=== PATIENT | male | born 1950 | race Caucasian/White ===

== ENCOUNTER 2019-03-10 11:02 | Inpatient (IN) | payer OTHER, MEDICAID ==
[~2019-03-10] VITALS: Ht 170.2 cm; Wt 84.4 kg
[2019-03-10 11:14] VITALS: Ht 170.2 cm; Wt 84.4 kg
--- NOTE | 2019-03-10 11:52 | NUR ---
PT AWAKE AND ALERT. PT C/O RT 2ND TOE PAIN X2 DAYS AND BILATERAL EYE DISCHARGE X2 DAYS. NAD. RESP E/U. MSE COMPLETED BY DR ZUNIGA
--- NOTE | 2019-03-10 12:50 | NUR ---
PT MEDICATED PER DOCTORS ORDERS
[2019-03-10 12:55] LABS: BASOPHIL % 0.4 % (0-2); PLATELET COUNT 240 x10^3mcL (130-400); RED CELL DISTRIBUTION WIDTH 13.7 % (11.5-14.5)
--- NOTE | 2019-03-10 13:05 | NUR ---
PT TAKEN TO XRAY VIA [facility]
--- NOTE | 2019-03-10 14:00 | NUR ---
PT BACK FROM XRAY AND PLACED BACK ON CM. PT PROVIDED URINE SAMPLE AND SENT TO LAB. NAD. RESP E/U.
[2019-03-10 14:10] LABS: ALKALINE PHOSPHATASE 63 U/L (46-116); ALT/SGPT 23 U/L (16-63); AST/SGOT 8 U/L (15-37); BILIRUBIN TOTAL 0.3 mg/dL (0.20-1.00); CALCIUM 8.7 mg/dL (8.5-10.1); CARBON DIOXIDE 27.4 mmol/L (21-32); CHLORIDE SERUM 103 mmol/L (98-107); CHOLESTEROL 135 mg/dL (<200); CREATININE SERUM 1.1 mg/dL (0.7-1.3); GFR1 > 60 mL/min; GLUCOSE SERUM 265 mg/dL (74-106); HDL CHOLESTEROL 40 mg/dL (40-60); LIPASE 250 IU/L (73-393); POTASSIUM SERUM 5.1 mmol/L (3.5-5.1); SODIUM SERUM 139 mmol/L (136-145); TOTAL PROTEIN, SERUM 6.4 g/dL (6.4-8.2)
[2019-03-10 14:11] LABS: ALBUMIN 3.2 g/dL (3.4-5.0)
[2019-03-10 14:25] LABS: microscopic required? YES; urine erythrocyte NEGATIVE (NEGATIVE)
[2019-03-10] MEDS ORDERED: BENAZEPRIL HYDR20 M1 PO (14:43)
[2019-03-10] MEDS ORDERED: METFORMIN HCL500 MG PO (14:44)
[2019-03-10] MEDS ORDERED: NOR5 PO (14:44)
[2019-03-10] MEDS ORDERED: TRAMADOL HCL50 MG PO (14:44)
[2019-03-10] MEDS ORDERED: BAYER ASPIRIN R81 MG PO (14:45)
[2019-03-10] MEDS ORDERED: FUROSEMIDE20 MG PO (14:45)
--- NOTE | 2019-03-10 15:28 | NUR ---
REPORT CALLED TO [facility], WAITING TO FIND FROM ADMITTING IF PT CAN BE ADMITTED.
--- NOTE | 2019-03-10 15:43 | NUR ---
PT PROVIDED SUGAR FREE SODA AND SUGAR FREE PUDDING
--- NOTE | 2019-03-10 15:43 | NUR ---
PORTABLE ULTRASOUND AT BEDSIDE
[2019-03-10 16:06] LABS: CHOLESTEROL/HDL RATIO 3.4; MAGNESIUM 1.8 mg/dL (1.8-2.4)
--- NOTE | 2019-03-10 16:45 | NUR ---
[facility] ACCOM[facility]ANIED BY TRANSPORTER. PT A/A/O X 4, CALM, COOPERATIVE; LUXEMBOURGISH-SPEAKING ONLY. POOR VISION, REDNESS, AND CLEAR DISCHARGE TO OU; SQUAXIN BILATERAL EARS; BP ELEVATED AT 159/75 (89); DENIES H/A OR NAUSEA. AMBULATORY, NO GAIT OR BALANCE IMPAIRMENT NOTED PT WALKED FROM GUERNEY TO BED; NOTED RIGHT BIG TOE AMPUTATION FROM 6 YEARS AGO. HR 56, S1S2, DENIES CHEST PAIN OR DISCOMFORT AT THIS TIME. CL RADIAL AND PEDAL PULSES PRESENT, RIGHT 2ND TOE LACERATION W/ ECCHYMOSIS TO TIP OF TOE AND +2 NON-PITTING EDEMA, ABRIL; CAP REFILL < 3 SECS, DENIES PAIN OR DISCOMFORT AT THIS TIME; SCD BY BEDSIDE. 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 NO ACUTE RESPIRATORY DISTRESS NOTED. FULL DENTURES BOTH UPPER AND LOWER. OLIGURIC, DENIES DYSURIA. IV SITE LAC 18G, CDI. ORIENTED PT TO ROOM, BED CONTROLS, CALL LIGHT SYSTEM. SIDE RAILS UP X 2, BED IN LOW POSITION. WILL ENDORSE TO JOVANNA GRIDER.
[2019-03-10 17:22] VITALS: BP 159/75
--- NOTE | 2019-03-10 17:45 | NUR ---
PT RESTING IN BED COMFORTABLY. DENIES ANY PAIN. STABLE. INFORMED ABOUT PT INFORMED HE IS OLIGURIC.
--- NOTE | 2019-03-10 19:00 | NUR ---
RECEIVED PT FROM DAY SHIFT RN. PT IS IS A&O X 4 AND CURRENTLY RESTING IN BED. PT IS SYRIAC SPEAKING AND ABLE TO FOLLOW SIMPLE COMMANDS. PT DENIES ANY CHEST PAIN OR SHORTNESS OF BREATH AT THIS TIME ON ROOM AIR. LUNGS SOUNDS ARE CTA. NO USE OF ACCESSORY MUSCLES OR LABORED BREATHING. RIGHT SECOND TOE SWELLING NOTED TO THE LOWER EXTREMITY. PT DENIES PAIN AT THIS TIME. PT STATED THAT HE IS VOIDING NOW AND HAS HAD REGULAR OUTPUT SINCE ADMISSION. WILL PERFORM BLADDER SCAN PER ORDER. LAC IV CLEAN DRY AND INTACT AT THIS TIME AND RUNNING NS AT 100ML/HR. SAFETY MEASURES ARE IN PLACE. CALL LIGHT IS WITHIN REACH. WILL CONTINUE TO MONITOR.
--- NOTE | 2019-03-10 19:05 | NUR ---
PT RESTING IN BED COMFORTABLY. DENIES PAIN. STABLE. GAVE REPORT TO EPIDEMIOLOGY INTERNSHIP NURSE.
[2019-03-10 20:44] VITALS: BP 136/70
--- NOTE | 2019-03-10 21:24 | NUR ---
PT VOIDED 900 ML IN URINAL
--- NOTE | 2019-03-11 04:31 | NUR ---
PT CURRENTLY RESTING IN BED. NO DISTRESS NOTED. NO USE OF ACCESSORY MUSCLES OR LABORED BREATHING NOTED. WILL CONTINUE TO MONITOR.
[2019-03-11 05:08] VITALS: BP 138/65
[2019-03-11 06:24] LABS: BASOPHIL % 0.3 % (0-2); PLATELET COUNT 222 x10^3mcL (130-400); RED CELL DISTRIBUTION WIDTH 13.7 % (11.5-14.5)
[2019-03-11 06:46] LABS: CALCIUM 8.7 mg/dL (8.5-10.1); CARBON DIOXIDE 27.3 mmol/L (21-32); CHLORIDE SERUM 106 mmol/L (98-107); CREATININE SERUM 1.1 mg/dL (0.7-1.3); GFR1 > 60 mL/min; GLUCOSE SERUM 161 mg/dL (74-106); MAGNESIUM 1.6 mg/dL (1.8-2.4); PHOSPHOROUS 3.3 mg/dL (2.5-4.9); SODIUM SERUM 140 mmol/L (136-145)
--- NOTE | 2019-03-11 07:16 | NUR ---
ENDORSED TO JAVI DAY SHIFT RN. TO COMPLETE CHECKLIST. PT RESTING IN CHAIR. NO DISTRESS NOTED.
--- NOTE | 2019-03-11 07:26 | NUR ---
REPORT RECEIVED FROM JOVANNA SANDOVAL. PATIENT UP IN A CHAIR AND NOT IN ANY DISTRESS. NS AT 100CC/HR TO RAC INFUSING. INSTRUCTED TO CALL RN FOR ANY NEED.
[2019-03-11 09:30] VITALS: BP 134/80
--- NOTE | 2019-03-11 11:28 | NUR ---
SEEN AND EXAMINED BY DR. MENARD. RIGHT SECOND TOE WAS DRESSED BY MD MENARD. PATIENT NOT IN ANY DISTRESS. STATES HE IS HUNGRY. BS 134. WILL GET LUNCH TRAY TODAY.
--- NOTE | 2019-03-11 11:51 | NUR ---
CALLED AND SPOKE TO (RESIDENT) ASSIGNED TO THIS PT AND MADE HIM AWARE OF PODIATRY RECOMMENDATION THAT WAS WRITTEN IN PODIATRY PROGRESS NOTE, ABOUT A NEED FOR A VASCULAR CONSULT FOR PT SEVERE PAD. WILL AWAIT FOR FURTHER ORDER.
--- NOTE | 2019-03-11 14:39 | NUR ---
TAKING A NAP. DENIES ANY DISCOMFORT.CALL ABRAHAM WITHIN REACH.
[2019-03-11 17:30] VITALS: BP 142/73
--- NOTE | 2019-03-11 17:42 | NUR ---
DENIES ANY PAIN OR DISCOMFORT. ACCU CHECK 207 AND COVERED WITH HUMILIN ORDERED. HAVING DINNER NOW.
[2019-03-11 19:15] VITALS: BP 115/63
--- NOTE | 2019-03-11 19:26 | NUR ---
REPORT GIVEN TO JOVANNA KOCH. PATIENT NOT IN ANY DISTRESS ON HANDOFF ROUNDS.
--- NOTE | 2019-03-11 19:30 | NUR ---
RECEIVED PT AWAKE ALERT AND VERBALLY RESPONSIVE IN [place].DENIES CHESTPAIN AT THIS TIME.BP 115/63 MMHG,HR 68.C/O TEARY EYES TO BOTH EYES WITH HX LASER EYE SURGERY TO BOTH EYES.CANNOT REMEMBER EYES DROPS MAINTENANCE HE USES AT HOME.DRESSING TO R 2ND TOE INTACT.S/P TX DONE BY [employer] DENTIST PER REPORT.DENIES ANY PAIN.WILL CONTINUE TO MONITOR.
--- NOTE | 2019-03-11 21:00 | NUR ---
DR. MARIA MADE AWARE OF PT'S REQUEST FOR EYES DROPS.NEW ORDER GIVEN AND WILL CARRY OUT ORDER.
--- NOTE | 2019-03-12 03:12 | NUR ---
DR. WALLACE MADE AWARE OF MAGNESIUM LEVEL 1.6.WILL WAIT FOR MORNING AM LABS.
--- NOTE | 2019-03-12 04:31 | NUR ---
PT SLEPT WELL.DENIES ANY PAIN ALL NIGHT.NO ASE NOTED FROM ZOSYN AND VANCO IV ATB.DRESSING TO R FOOT CDI.ELEVATED ON A PILLOW.ALL NEEDS MET.WILL CONTINUE TO MONITOR.
[2019-03-12 05:37] VITALS: BP 119/63
[2019-03-12 06:18] LABS: BASOPHIL % 0.4 % (0-2); PLATELET COUNT 214 x10^3mcL (130-400); RED CELL DISTRIBUTION WIDTH 13.6 % (11.5-14.5)
[2019-03-12 06:38] LABS: CALCIUM 8.9 mg/dL (8.5-10.1); CARBON DIOXIDE 29.8 mmol/L (21-32); CREATININE SERUM 1.3 mg/dL (0.7-1.3); MAGNESIUM 1.6 mg/dL (1.8-2.4); PHOSPHOROUS 4.3 mg/dL (2.5-4.9); POTASSIUM SERUM 4.9 mmol/L (3.5-5.1)
--- NOTE | 2019-03-12 07:58 | NUR ---
WOUND CARE EVALUATION NOT DONE, PT IS SEEN AND TREATED WITH IN HOUSE PODIATRY DR. PEÑALOZA AND WILL CONTINUE TO FOLLOW UP WHILE IN HOUSE. PENDING VASCULAR CONSULT FOR PAD.
--- NOTE | 2019-03-12 08:04 | NUR ---
RECEIVED PATIENT FROM JOVANNA KOCH. PATIENT IN BED WITH NO COMPLAINTS OF PAIN. STATES THAT HIS EYES ARE DRY, PRN EYE DROPS GIVEN. CALL LIGHT IN REACH AT THIS TIME.
[2019-03-12 08:39] VITALS: BP 119/63
--- NOTE | 2019-03-12 10:50 | NUR ---
PATIENT SEEN AMBULATING TO BR. NO OTHER COMPLAINTS AT THIS TIME. PATIENT RETURNED TO BED WO ASSIST. WILL CONTINUE TO MONITOR. CALL LIGHT IN REACH.
--- NOTE | 2019-03-12 13:07 | NUR ---
NOTIFIED CASE MANGTODD CUBA ABOUT PATIENT AMBULATION. PATIENT SEEN STANDING AT BEDSIDE USING URINAL. NO COMPLAINTS OF PAIN AT THIS TIME. CALL LIGHT IN REACH.
--- NOTE | 2019-03-12 14:33 | NUR ---
DR JOSE IN TO SPEAK W PATIENT ABOUT PLAN OR CARE. PATIENT VERBALIZES UNDERSTANDING. NO COMPLAINTS AT THIS TIME. CALL LIGHT IN REACH.
--- NOTE | 2019-03-12 14:52 | NUR ---
Initial Nutrition Assessment: (202-B) COREY ROSAS 68M Dx: Diabetic foot PMHx: HTN, DM2 PSHx: 1st toe amputation R foot (6 years ago), Meniscus repair R knee Labs: BG 184H, A1c 7.5H, Meds: Humulin, Lactinex, Lasix, Vancomycin, Zofran Diet: CCHO PO intake since admission: 100% Ht: 67 in Wt:185.6# BMI: 29.1 Bed scale: 186.2# IBW: 148# %IBW: 125% UBW: 182# Age: 62 Food Allergies: NKFA Skin: Woudn R first toe, dressign CDI Gregor: 22 Edema: None noted GI: BS x4 quadrants, soft non-tender Last BM: 03/12 RD Note (03/12): Wound consult received for DM foot ulcer, 2nd R toe. Visited pt bedside, PO intake excellent, no c/o pain or N/V/D/C. Pt stated his R big toe amputated and has wound to his R 2nd toe, but no pain at this time. Problem with: N/V/D/C: None Problems with: Chewing: No Swallowing: No Current appetite: Good Recent wt change: None %wt change: None Vitamin/Supplement use: Coconut oil, Metformin Special diet at home: Regular Physical activity: ~3x/week Nutrition education given (specify specific nutrition education and handout given): None given at this time. Food-drug interactions? Education given? None given at this time. Estimated Nutritional Needs Based on body weight (84.4 kg) Energy: 6454-2754 kcal (25-30 kcal/kg) Protein: 101-127 g (1.2-1.5 g/kg for wound healing) Fluid: 6035-6163 mL (1 mL/kcal) Nutrition Diagnosis: Increased nutrient needs r/t wound healing AEB DM foot ulcer 2nd toe. Intervention 1. Continue current plan of care. Monitor/Evaluate Goal: PO intake at least 75% of estimated needs Monitor: PO intake, Labs, GI function F/U in 2-3 days as high risk 03/14 - 03/15.
--- NOTE | 2019-03-12 14:54 | NUR ---
Recommendation: 1. Continue current plan of care.
[2019-03-12 17:08] VITALS: BP 145/72
--- NOTE | 2019-03-12 18:53 | NUR ---
PATIENT CONTINUES TO AMBULATE TO WO ASSISTANCE. PATIENT BACK IN BED, NO COMPLAINTS OF PAIN. CALL LIGHT IN REACH AT THIS TIME. WILL ENDORSE TO ONCOMING NURSE.
--- NOTE | 2019-03-12 19:10 | NUR ---
REC'D PT FROM DAY NURSE. PT RESTING IN BED. AAOX4, SPEECH CLEAR, FOLLOWS COMMANDS. MED SURG, NO TELE. DENIES CP, DIZZINESS, OR PALPITATIONS. DENIES RESP DISTRESS OR SOB. BREATHING EVEN/UNLABORED ON RA. NO EDEMA NOTED. ABD SOFT/ROUND. DENIES ABD PAIN, TENDERNESS, OR N/V. VOIDING FREELY. AMBULATORY. 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 HX R HALLUX AMPUTATION. NOTED WOUND/SCAB TO R 2ND TOE. PT HAD REMOVED THE DRESSING. WILL REDRESS PER ORDER. IV TO RFA PATENT AND INFUSING, SITE WNL. CALL LIGHT WTIHIN REACH, BED AT LOWEST POSITION. WILL CONTINUE TO MONITOR.
--- NOTE | 2019-03-12 21:06 | NUR ---
WOUND CARE PROVIDED. CLOSED TRY WOUND TO R 2ND TOE. SKIN STAINED WITH BETADINE. BLACK AREAS NOTED. APPLIED BETADINE, 2 2X2 GAUZE, AND WRAPPED WITH KERLIX GEE. NO COMPLAINTS AT THIS TIME. DUE MEDS GIVEN.
[2019-03-12 21:21] VITALS: BP 128/68
--- NOTE | 2019-03-13 01:07 | NUR ---
PT RESTING IN BED WITH EYES CLOSED. NO SIGNS OF DISTRESS NOTED. BREATHING EVEN/UNLABORED ON RA. CALL LIGHT WITHIN REACH, BED AT LOWEST POSITION. WILL CONTINUE TO MONITOR.
--- NOTE | 2019-03-13 06:06 | NUR ---
PT RESTING IN BED WITH EYES CLOSED. AROUSES EASILY. NO COMPLAINTS AT THIS TIME. DENIES ANY PAIN. DRESSING TO R FOOT CDI. NO SIGNIFICANT CHANGES DURING SHIFT. [facility], BED AT LOWEST POSITION. WILL ENDORSE TO DAY NURSE.
[2019-03-13 06:15] LABS: BASOPHIL % 0.4 % (0-2); PLATELET COUNT 229 x10^3mcL (130-400); RED CELL DISTRIBUTION WIDTH 13.5 % (11.5-14.5)
[2019-03-13 06:30] VITALS: BP 126/63
[2019-03-13 06:57] LABS: CALCIUM 8.8 mg/dL (8.5-10.1); CARBON DIOXIDE 30.9 mmol/L (21-32); CHLORIDE SERUM 105 mmol/L (98-107); CREATININE SERUM 1.2 mg/dL (0.7-1.3); GFR1 > 60 mL/min; GLUCOSE SERUM 150 mg/dL (74-106); MAGNESIUM 1.7 mg/dL (1.8-2.4); POTASSIUM SERUM 4.6 mmol/L (3.5-5.1); SODIUM SERUM 141 mmol/L (136-145)
--- NOTE | 2019-03-13 07:15 | NUR ---
RECEIVED PT IN BED. ASSESSED AND DOCUMENTED. DENIES PAIN THIS TIME. SAFTEY PRECAUTIONS ARE IN PLACE. WILL MONITOR.
[2019-03-13 09:36] VITALS: BP 141/69
[2019-03-13] MEDS ORDERED: VAN1I IV (10:17)
--- NOTE | 2019-03-13 14:00 | NUR ---
PT RESTING IN BED COMFORTABLY. DENIES ANY PAIN. ATE LUNCH. STABLE.
[2019-03-13 16:42] VITALS: BP 128/65
--- NOTE | 2019-03-13 16:45 | NUR ---
PT BS IS 49, RECHECKED BS 51. ASYMPATAMATIC. OJ X2 GIVEN AND RECHECKED PT BS AFTER OJ IS 96. INFORMED WES ABOUT THAT, SHE SAID PT IS STILL SAFE TO GET DISCHARGE. PT IS STABLE. CHARGE NURSE AWARE.
--- NOTE | 2019-03-13 18:00 | NUR ---
DRESSING CHANGE TO RT 2ND TOE AND DC PIC TAKEN. PT SIGNED TRANSFER PAPER AND REPORT TO GIVEN TO NURSE AT [facility]. PT DENIES PAIN. PT WILL BE TRANSFERED AT 1999.
[2019-03-13 18:48] VITALS: BP 128/65
--- NOTE | 2019-03-13 19:05 | NUR ---
PT REMAINS STABLE. DENIES ANY PAIN. GAVE REPORT TO RECRUITING CONSULTANT NURSE.
--- NOTE | 2019-03-13 19:55 | NUR ---
Awake and verbally responsive. No respiratory distress noted. Denies pain. Denies n/v. Waiting for [facility].
--- NOTE | 2019-03-13 20:16 | NUR ---
[facility] HERE TO [facility] OFFICER THE PATIENT GOING TO [facility]. TRANSFER PACKET GIVEN. IN NO APPARENT DISTRESS.
== END 2019-03-13 20:17 | DRG 638 ==
LOC: ED 11:02 → MU 14:42 → DU 14:42 → MU 17:09
PROVIDERS: Emergency Medicine; Internal Medicine; ADMIT Family Medicine
DX: E11.621 Type 2 diabetes mellitus with foot ulcer (principal); E44.0 Moderate protein-calorie malnutrition; D68.69 Other thrombophilia; E11.42 Type 2 diabetes mellitus with diabetic polyneuropathy; L97.511 Non-pressure chronic ulcer of other part of right foot limited to breakdown of skin; E11.65 Type 2 diabetes mellitus with hyperglycemia; M81.0 Age-related osteoporosis without current pathological fracture; I10 Essential (primary) hypertension; Z79.82 Long term (current) use of aspirin; Z89.411 Acquired absence of right great toe; Z68.29 Body mass index [BMI] 29.0-29.9, adult; Z79.84 Long term (current) use of oral hypoglycemic drugs
CPT/HCPCS: 82962; 90715; G0378; J0295; J1815; J2543; J3370; J3490; J7030; Q0092